=== PATIENT | male | born 1975 | race Caucasian/White ===

== ENCOUNTER 2021-05-14 09:27 | Inpatient (IN) | payer OTHER ==
[2021-05-14] MEDS ORDERED: METHOCARBAMOL 500 MG TABLET PO PRN (09:59)
[2021-05-14] MEDS ORDERED: MAGNESIUM HYDROX 2400MG/30ML ORAL SUSPENSION 30 ML CUP PO PRN (09:59)
[2021-05-14] MEDS ORDERED: IBUPROFEN 400 MG TABLET (FP) PO PRN (09:59)
[2021-05-14] MEDS ORDERED: ACETAMINOPHEN 325 MG TABLET (FP) PO PRN ×2 (09:59)
[2021-05-14] MEDS ORDERED: BISMUTH SUBSALICYLATE 262 MG/15 ML BTL PO PRN (09:59)
[2021-05-14] MEDS ORDERED: ONDANSETRON *ODT* 4 MG TABLET SL PRN (09:59)
[2021-05-14] MEDS ORDERED: MENTHOL/PHENOL 1 EACH UD MM PRN (09:59)
[2021-05-14] MEDS ORDERED: MAG HYDROX/AL HYDROX/SIMETH 30 ML UNIT-DOSE CUP PO PRN (09:59)
[2021-05-14] MEDS ORDERED: NICOTINE 10 MG CARTRIDGE (INHALER) IH PRN (09:59)
[2021-05-14] MEDS ORDERED: MAGNESIUM CITRATE 300 ML BOTTLE PO PRN (09:59)
[2021-05-14] MEDS ORDERED: PRENATAL VITAMINS W/ FOLIC ACID TABLET (FP) PO SCH (10:00)
[2021-05-14 10:14] VITALS: BMI 28.9
[2021-05-14] MEDS: hydrOXYzine PAMOATE 25 MG CAPSULE (FP) PO SCH ×2 (11:19→14:00)
[2021-05-14 13:12] VITALS: BP 130/65; PULSE 72; TEMP 97.7
[2021-05-14] MEDS ORDERED: MELATONIN 5 MG TABLETS PO SCH (22:00)
[2021-05-14] MEDS ORDERED: THIAMINE HCL 100 MG TABLET (FP) PO SCH (22:00)
== END 2021-05-14 15:24 | disposition left against medical advice (07) | DRG 770 ==
LOC: YASAS 09:27 → Y6N 10:10 → UNDOADMIN 10:10 → UNDODISIN 15:24
PROVIDERS: ADMIT Allergy & Immunology; ATTEND Allergy & Immunology
PROC: HZ2ZZZZ Detoxification Services for Substance Abuse Treatment (ICD-10-PCS; principal; 2021-05-14)
DX: F11.23 Opioid dependence with withdrawal (principal); F17.210 Nicotine dependence, cigarettes, uncomplicated
CPT/HCPCS: C9803; U0003; U0005

== ENCOUNTER 2022-09-19 09:36 | Inpatient (IN) | payer OTHER ==
[2022-09-19 10:17] VITALS: BMI 27.3
[2022-09-19] MEDS ORDERED: MAGNESIUM HYDROX 2400MG/30ML ORAL SUSPENSION 30 ML CUP PO PRN (10:55)
[2022-09-19] MEDS ORDERED: NALOXONE HCL (KLOXXADO) 8 MG SPRAY NS PRN (10:55)
[2022-09-19] MEDS ORDERED: MAG HYDROX/AL HYDROX/SIMETH 30 ML UNIT-DOSE CUP PO PRN (10:55)
[2022-09-19] MEDS ORDERED: NALOXONE HCL 0.4 MG/ML VIAL IM PRN (10:55)
[2022-09-19] MEDS ORDERED: guaiFENesin 600 MG TABLET.ER (FP) PO PRN (10:55)
[2022-09-19] MEDS ORDERED: ACETAMINOPHEN 325 MG TABLET (FP) PO PRN (10:55)
[2022-09-19] MEDS ORDERED: POLYETHYLENE GLYCOL (HEALTHYLAX) 3350 17 GM PACKET PO PRN (10:55)
[2022-09-19] MEDS ORDERED: BENZONATATE 200 MG CAPSULE PO PRN (10:55)
[2022-09-19] MEDS ORDERED: NICOTINE 10 MG CARTRIDGE (INHALER) IH PRN (10:55)
[2022-09-19] MEDS ORDERED: BISMUTH SUBSALICYLATE 524 MG/30 ML PO PRN (10:55)
[2022-09-19] MEDS ORDERED: BENZOCAINE/MENTHOL (CHLORASEPTIC ) LOZENGE MM PRN (10:55)
[2022-09-19] MEDS ORDERED: IBUPROFEN 600 MG TABLET (FP) PO PRN (10:55)
[2022-09-19] MEDS ORDERED: BUPRENORPHINE HCL 150 MCG, BUPRENORPHINE HCL 75 MCG BC PRN (10:55)
[2022-09-19] MEDS ORDERED: IBUPROFEN 400 MG TABLET (FP) PO PRN (10:55)
[2022-09-19] MEDS ORDERED: LOPERAMIDE HCL 2 MG CAPSULE PO PRN (10:55)
[2022-09-19] MEDS ORDERED: ONDANSETRON *ODT* 4 MG TABLET SL PRN (10:55)
[2022-09-19] MEDS ORDERED: DICYCLOMINE HCL 10 MG CAPSULE PO PRN (10:55)
[2022-09-19] MEDS ORDERED: hydrOXYzine PAMOATE 25 MG CAPSULE (FP) PO PRN (10:55)
[2022-09-19] MEDS ORDERED: diazePAM 5 MG TABLET PO PRN (10:55)
[2022-09-19] MEDS ORDERED: METHOCARBAMOL 500 MG TABLET PO PRN (10:55)
[2022-09-19] MEDS ORDERED: BUPRENORPHINE HCL 150 MCG FILM BC ONE (11:24)
[2022-09-19] MEDS ORDERED: BUPRENORPHINE HCL 75 MCG FILM BC ONE (11:24)
[2022-09-19] MEDS ORDERED: cloNIDine HCL 0.1 MG TABLET ONE (11:25)
[2022-09-19] MEDS ORDERED: NICOTINE 7 MG/24 HOURS TOPICAL PATCH TD ONE (11:25)
[2022-09-19] MEDS ORDERED: BUPRENORPHINE HCL 150 MCG, BUPRENORPHINE HCL 75 MCG BC ONE (11:30)
[2022-09-19] MEDS ORDERED: cloNIDine HCL 0.1 MG TABLET PO ONE (11:30)
[2022-09-19] MEDS: NICOTINE 7 MG/24 HOURS TOPICAL PATCH TD SCH (11:38)
[2022-09-19] MEDS ORDERED: cloNIDine HCL 0.1 MG TABLET PO PRN (14:58)
[2022-09-19 17:47] LABS: HEMATOCRIT 39.9 % (35.4-49); HEMOGLOBIN 13.5 GM/dL (11.7-16.9); MCH 29.2 pg (25.7-33.7); MCHC 33.9 g/dl (32.0-35.9); MEAN PLT VOLUME 9.6 fl (7.5-11.1); PLATELET COUNT 184 10^3/uL (134-434); RBC 4.64 M/mm3 (4.00-5.60); RDW 12.5 % (11.9-15.9); WHITE BLOOD COUNT 3.6 K/mm3 (4.0-10.0)
[2022-09-19 17:50] LABS: CALCIUM 10.1 mg/dL (8.5-10.1)
[2022-09-19 17:51] LABS: ALBUMIN 4.2 g/dl (3.4-5.0)
[2022-09-19 17:54] LABS: CREATININE 0.7 mg/dL (0.55-1.3)
[2022-09-19 17:55] LABS: BILIRUBIN,TOTAL 0.7 mg/dL (0.2-1)
[2022-09-19] MEDS ORDERED: THIAMINE HCL 100 MG TABLET (FP) PO SCH (22:00)
[2022-09-19] MEDS ORDERED: MELATONIN 5 MG TABLETS PO SCH (22:00)
[2022-09-20] MEDS ORDERED: BUPRENORPHINE HCL 150 MCG, BUPRENORPHINE HCL 75 MCG BC PRN
[2022-09-20] MEDS ORDERED: BUPRENORPHINE HCL 150 MCG, BUPRENORPHINE HCL 75 MCG BC SCH (06:00)
[2022-09-20 06:51] VITALS: RESP 16
[2022-09-20] MEDS: NICOTINE 7 MG/24 HOURS TOPICAL PATCH TD SCH (09:15)
[2022-09-20 09:33] VITALS: BP 141/78; PULSE 87; TEMP 97.7
[2022-09-20] MEDS ORDERED: PRENATAL VITAMINS W/ FOLIC ACID TABLET (FP) PO SCH (10:00)
[2022-09-21] MEDS ORDERED: BUPRENORPHINE HCL 450 MCG FILM BC SCH (06:00)
[2022-09-22] MEDS ORDERED: BUPRENORPHINE/NALOXONE 4 MG/1 MG FILM PACKET SL SCH (06:00)
[2022-09-23] MEDS ORDERED: BUPRENORPHINE/NALOXONE 8 MG/2 MG FILM PACKET SL ONE (06:00)
== END 2022-09-20 08:53 | disposition left against medical advice (07) | DRG 770 ==
LOC: YASAS 09:36 → Y3N 11:16
PROVIDERS: ADMIT Allergy & Immunology; ATTEND Surgery
PROC: HZ2ZZZZ Detoxification Services for Substance Abuse Treatment (ICD-10-PCS; principal; 2022-09-19)
DX: F11.23 Opioid dependence with withdrawal (principal); F17.210 Nicotine dependence, cigarettes, uncomplicated
CPT/HCPCS: 36415; 80053; 85027; 86780; 87811; C9803-CS; U0003; U0005